=== PATIENT | male | born 1990 | race Caucasian/White ===

== ENCOUNTER → 2023-01-04 | Outpatient (CLI) | payer OTHER ==
[2023-01-04 14:20] LABS: HEMATOCRIT 42.8 % (42.0-52.0); MEAN CELL VOLUME 87.5 fl (80.0-94.0); MEAN CORPUSCULAR HGB CONC 33.2 g/dl (33.0-37.0); RED BLOOD COUNT 4.89 10*6/uL (4.50-5.90); RED CELL DISTRI WIDTH 13.4 % (0-14.5); WHITE BLOOD COUNT 11.3 10*3/uL (4.8-10.8)
[2023-01-04 14:52] LABS: ALKALINE PHOSPHATASE 62 U/L (46-116); BUN 13 mg/dl (9-23); CHLORIDE 108 mmol/L (98-107); CHOLESTEROL 179 mg/dL (<200); LDL CHOLESTEROL 76 mg/dL (9-159); POTASSIUM 3.8 mmol/L (3.4-5.1); SGPT/ALT 31 U/L (10-49); TOTAL PROTEIN 6.8 gm/dL (6.0-8.0); TRIGLYCERIDES 343 mg/dl (<150)
[2023-01-04 14:54] LABS: VITAMIN D, 25-HYDROXY 25.3 ng/mL (30-100)
== END | disposition home or self-care (01) ==
LOC: LAB 13:38
PROVIDERS: ATTEND Family Medicine
DX: Z00.00 Encounter for general adult medical examination without abnormal findings (principal); E55.9 Vitamin D deficiency, unspecified; F90.9 Attention-deficit hyperactivity disorder, unspecified type; E74.00 Glycogen storage disease, unspecified; F41.1 Generalized anxiety disorder; R53.83 Other fatigue

== ENCOUNTER 2024-06-05 14:55 | Emergency (ER) | payer OTHER ==
[~2024-06-05] VITALS: Ht 177.8 cm; Wt 81.9 kg
[2024-06-05] MEDS ORDERED: ARIPIPRAZOLE5 MG PO (15:06)
[2024-06-05] MEDS ORDERED: ADDERALL 30 MG30 MG PO (15:06)
[2024-06-05] MEDS ORDERED: MINIPRESS2 M1 PO (15:07)
[2024-06-05] MEDS ORDERED: PREDNISONE50 MG PO (15:17)
[2024-06-05] MEDS ORDERED: NAPROSYN500 MG PO (15:17)
[2024-06-05] MEDS ORDERED: methylPREDNISolone sod succ 125 MG VIAL IM ONE (15:20)
[2024-06-05] MEDS ORDERED: Ketorolac Tromethamine 30 MG/ML VIAL IM ONE (15:20)
== END 2024-06-05 15:20 | disposition home or self-care (01) ==
LOC: ED 14:55
DX: M54.12 Radiculopathy, cervical region (principal); Z79.899 Other long term (current) drug therapy; X58.XXXA Exposure to other specified factors, initial encounter; Y93.89 Activity, other specified; Y92.89 Other specified places as the place of occurrence of the external cause; Y99.8 Other external cause status